=== PATIENT | female | born 2000 | race Hispanic/Latino ===

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

== ENCOUNTER 2022-01-05 23:13 | Emergency (ER) | payer OTHER ==
[~2022-01-05] VITALS: Ht 160 cm; Wt 64.4 kg
[~2022-01-05 23:13] MED LIST: ACETAMINOPHEN500 MG PO; FAMOTIDINE20 MG PO; OMEPRAZOLE20 M2 PO; ONDANSETRON ODT4 MG PO
[2022-01-06 00:11] VITALS: BP 106/56
== END 2022-01-06 00:11 | disposition home or self-care (01) ==
LOC: FSED 23:18
DX: R00.2 Palpitations (principal); F41.0 Panic disorder [episodic paroxysmal anxiety]
CPT/HCPCS: 93005; 99282

== ENCOUNTER 2022-06-02 22:55 | Emergency (ER) | payer OTHER ==
[~2022-06-02] VITALS: Ht 157.5 cm; Wt 64.4 kg
[2022-06-02] MEDS ORDERED: SODIUM CHLORIDE 0.9% 1000ML 1,000 ML IV STA (23:28)
[2022-06-02] MEDS ORDERED: ONDANSETRON HCL INJ 2MG/ML 2ML 2 MG/ML VIAL IV STA (23:28)
[2022-06-02] MEDS ORDERED: FAMOTIDINE 20 MG/2 ML VIAL IV STA (23:28)
[2022-06-02] MEDS ORDERED: KETOROLAC TROMETHAMINE 30 MG/ML VIAL IV STA (23:28)
[2022-06-03] MEDS ORDERED: ONDANSETRON HCL INJ 2MG/ML 2ML 2 MG/ML VIAL ONE (00:03)
[2022-06-03] MEDS ORDERED: KETOROLAC TROMETHAMINE 30 MG/ML VIAL ONE (00:03)
[2022-06-03] MEDS ORDERED: FAMOTIDINE 20 MG/2 ML VIAL IV ONE (00:03)
[2022-06-03] MEDS ORDERED: SODIUM CHLORIDE 0.9% 1000ML 1,000 ML ONE (00:03)
[2022-06-03] MEDS ORDERED: ONDANSETRON ODT4 MG PO (00:45)
[2022-06-03 00:52] VITALS: BP 121/66
== END 2022-06-03 00:52 | disposition home or self-care (01) ==
LOC: FSED 23:05
DX: R11.2 Nausea with vomiting, unspecified (principal); E86.0 Dehydration
CPT/HCPCS: 80053; 81003; 81025; 85025; 96374; 96375; 96376; 99283; J1885; J2405; J7030

== ENCOUNTER 2022-07-23 17:46 | Emergency (ER) | payer OTHER ==
[~2022-07-23] VITALS: Ht 157.5 cm; Wt 64.4 kg
[2022-07-23 18:20] VITALS: O2SAT 99
[2022-07-23] MEDS ORDERED: ONDANSETRON ODT4 MG PO (21:17)
== END 2022-07-23 21:33 | disposition home or self-care (01) ==
LOC: FSED 20:29
DX: R50.9 Fever, unspecified (principal); B34.9 Viral infection, unspecified; R11.2 Nausea with vomiting, unspecified; R09.89 Other specified symptoms and signs involving the circulatory and respiratory systems
CPT/HCPCS: 81003; 83518; 87400; 99283